=== PATIENT | female | born 1965 | race Caucasian/White ===

== ENCOUNTER → 2020-01-21 16:21 | Outpatient (CLI) | payer BC, SELFPAY ==
[2020-01-23 14:48] LABS: Covid-19 Nasal PCR Sendout Lex NOT DETECTED
== END ==
PROVIDERS: PCP Family Medicine; Visit Provider Nurse Practitioner Family
DX: Z03.818 Encounter for observation for suspected exposure to other biological agents ruled out (principal)
CPT/HCPCS: U0004

== ENCOUNTER 2020-03-16 11:21 | Emergency (ER) | payer BC, SELFPAY ==
[2020-03-16 11:35] VITALS: BP 145/85; PULSE 90; RESP 19; TEMP 37.1; O2SAT 96; BMI 28.3
--- NOTE | 2020-03-16 11:35 | XR_ITS ---
PROCEDURE: XR CHEST 2V CLINICAL HISTORY: COUGH Some shortness of breath COMPARISON: No exams were available for comparison FINDINGS: The cardiomediastinal silhouette and pulmonary vascularity are within normal limits. The lung abdi are well expanded. There are subtle patchy ill-defined opacities in the right infrahilar region and right lower lobe and also right suprahilar region and extending into the anterior segment right upper lobe consistent with early acute airspace disease. The left lung abdi well expanded and clear. There is no pleural fluid. IMPRESSION: Ill-defined pneumonic infiltrates upper lobe and right lower lobe Dictated by: Dr. Martínez Diana MD 03/16/2020 18:50 Dr. Martínez Diana MD in [place] 03/16/2020 18:50
--- NOTE | 2020-03-16 11:42 | HMH.EDUTC ---
[facility] [place]: Cough, Encounter for laboratory testing for COVID-19 virus Disposition: Home, Self-Care Condition on Discharge: Good Instructions: Cough, Benzonatate Additional Instructions: *Monitor Temp, Over the counter Motrin or Tylenol as directed/as needed Tylenol every 4 hours and Motrin every 6 hours (as long as your family doctor has told you that you can take it) for fever or pain. and straight to ER if unable to lower temp less than 101.0 after medication given *Warm salt water gargles may help to soothe the throat *Throat Lozenges *Warm fluids like tea with honey may help to soothe the throat *Sleep elevated *Humidifier/Vaporizer *Flonase 2 sprays in each nostril daily but be aware that it may take 2-3 days before you notice improvement Your throat swab was sent for culture. Those results are typically sent to your primary care. Be sure to follow up in 2-3 days with your family doctor/primary care physician if no improvement so they can review those result and treat if necessary. If you don?t have a primary care doctor, I recommend you get one but in the mean time, you will have to return to a walk in clinic Follow up IMMEDIATELY for new or worsening symptoms or no Noticeable improvement over the next 48-72 hours. 911 for difficulty breathing or swallowing You was tested for today for COVID19 your test result should be back tomorrow or Tuesday, you may call back on Tuesday to see if your test results are back and the result You was given a handout with instructions for Self Quarantine and Self isolation for while you wait on test results and what to do if they are positive Prescriptions: Benzonatate [Tessalon Perle 100mg Cap*] 100 mg PO TID PRN #30 cap PRN Reason: Cough Transmission Status: Received by [facility] #[id number] Referrals: Seble Black [Primary Care Provider] - As needed Forms: Work/School Release Time of Disposition: 12:36 Medical Decision Making - Joseph Inquiry Pt receiving controlled substance: No Joseph was queried for this patient: No Vital Signs: 03/16/20 11:35 03/16/20 12:43 Temperature 98.8 F 98.8 F Temperature Source Oral Oral Pulse Rate 90 Pulse Rate [Radial] 90 Respiratory Rate 19 19 Blood Pressure 145/85 H Blood Pressure [Right Arm] 145/85 H Blood Pressure Mean [Right Arm] 105 Blood Pressure Source Automatic Cuff Blood Pressure Source [Right Arm] Automatic Cuff Blood Pressure Position Sitting Blood Pressure Position [Right Arm] Sitting 02 Sat by Pulse Oximetry 96 Oxygen Delivery Method Room Air Room Air - Lab Data Lab Results 03/16/20 11:42: Strep Scn Rapid Clinic Negative Orders (Tests/Meds): ORDERS Category Date Time Status Covid-19 Nasal PCR Sendout [facility] Stat Lab 03/16/20 11:50 Received Strep Screen Confirmation Stat Micro 03/16/20 11:42 Received - Radiology Data #1 Image(s): Chest Image Reviewed: Yes I reviewed the patient's radiology image w/the ED provider Preliminary Findings: Normal/NAD [facility] [place] - General Stated complaint: cough soa Time Seen by Provider: 03/16/20 11:42 Mode of Arrival: Ambulatory Source of Information: Patient Limitations: No Limitations Description of Symptoms (Recalled from Triage Doc. by RN): was diagnosed with bronchitis on Tuesday and isn't any better HEENT Symptoms (Recalled from RN notes): No Resp Symptoms (Recalled from RN notes): Yes Skin Symptoms (Recalled from RN notes): No MS Symptoms (Recalled from RN notes): No Functional Status (Recalled from RN notes): wnl - History of Present Illness Provider Complaint: Patient states she was seen by her PCP on Tuesday and dx with bronchitis and sinusitis and placed on Doxy, flonase and given inhaler States that she [facility] but has never heard anything State that she is feeling worse States that she is having body aches, cough, headache worsening of sinus pressure so she come in t
[2020-03-16 12:15] LABS: UTC Strep Screen (Rapid) Negative (Negative)
[2020-03-16 12:43] VITALS: BP 145/85; PULSE 90; RESP 19; TEMP 37.1; O2SAT 96
[2020-03-17 16:39] LABS: Covid-19 Nasal PCR Sendout UK Detected
--- NOTE | 2020-03-17 16:42 | PC.NURSE ---
Attempted to call patient regarding positive covid results. No answer. Message left.
--- NOTE | 2020-03-17 17:13 | PC.NURSE ---
Patient returned phone call and was notified of positive COVID results. Educated on strict quarantine.
== END 2020-03-16 12:44 | disposition home or self-care (01) ==
PROVIDERS: Emergency Provider Nurse Practitioner; PCP Family Medicine
DX: U07.1 COVID-19 (principal)
CPT/HCPCS: 71046; 87880; 99202; U0003

== ENCOUNTER 2020-03-24 14:58 | Emergency (ER) | payer BC, SELFPAY ==
[2020-03-24 15:59] VITALS: BP 111/44; PULSE 65; RESP 18; TEMP 37; O2SAT 98; BMI 24.5
--- NOTE | 2020-03-24 16:03 | HMH.EDUTC ---
[facility] [place] Clinical Impression: Encounter for laboratory testing for COVID-19 virus Disposition: Home, Self-Care Condition on Discharge: Good Instructions: Preventing the Spread of Coronavirus Discharge Instructions Additional Instructions: *Monitor Temp, Over the counter Motrin or Tylenol as directed/as needed Tylenol every 4 hours and Motrin every 6 hours (as long as your family doctor has told you that you can take it) for fever or pain. and straight to ER if unable to lower temp less than 101.0 after medication given *Warm fluids like tea with honey may help to soothe the throat *Sleep elevated *Humidifier/Vaporizer Follow up IMMEDIATELY for new or worsening symptoms or no Noticeable improvement over the next 48-72 hours. 911 for difficulty breathing or swallowing You was tested for today for COVID19 your test result should be back later this evening, you may call back later this evening to see if your test results are back and the result You was given a handout with instructions for Self Quarantine and Self isolation for while you wait on test results and what to do if they are positive Referrals: Seble Black [Primary Care Provider] - As needed Forms: Work/School Release Time of Disposition: 16:06 Medical Decision Making - Joseph Inquiry Pt receiving controlled substance: No Joseph was queried for this patient: No Vital Signs: 03/24/20 15:59 Temperature 98.6 F Temperature Source Oral Pulse Rate [Right Brachial] 65 Respiratory Rate 18 Blood Pressure [Right Arm] 111/44 L Blood Pressure Mean [Right Arm] 66 Blood Pressure Source [Right Arm] Automatic Cuff Blood Pressure Position [Right Arm] Sitting 02 Sat by Pulse Oximetry 98 Oxygen Delivery Method Room Air Orders (Tests/Meds): ORDERS Category Date Time Status Covid-19 Nasal PCR ([facility]) Routine Lab 03/24/20 15:41 Ordered [facility] [place] - General Stated complaint: covid test Time Seen by Provider: 03/24/20 16:03 Mode of Arrival: Ambulatory Source of Information: Patient Limitations: No Limitations Description of Symptoms (Recalled from Triage Doc. by RN): PATIENT REQUESTING COVID TEST. SHE WAS POSITIVE APPROX 2 WEEKS AGO AND IS NEEDING 2 NEGATIVE RESULTS TO RETURN TO WORK. DENIES SYMPTOMS AT THIS TIME HEENT Symptoms (Recalled from RN notes): No Resp Symptoms (Recalled from RN notes): No Skin Symptoms (Recalled from RN notes): No MS Symptoms (Recalled from RN notes): No Functional Status (Recalled from RN notes): WNL - History of Present Illness Provider Complaint: Patient states that she was positive for COVID about 2 weeks ago and she is feeling much better States that she came in today because work is requiring her to have 2 negative tests before she can return back to work States that she is not having any symptoms at this time - Related Data Previous Rx's Medication Instructions Recorded Benzonatate [Tessalon Perle 100mg 100 mg PO TID PRN #30 cap 03/16/20 Cap*] Allergies Allergy/AdvReac Type Severity Reaction Status Date / Time erythromycin base Allergy Verified 03/24/20 16:03 - Worker's Comp Is this a Worker's Comp case?: No [facility] History - Hepatitis A Screen Drug use history?: No High risk sexual behaviors?: No History of sexually transmitted infection?: No Currently employed?: No Childcare worker?: No Do you have indoor plumbing?: Yes Do you have electricity?: Yes Attestation statement:: This patient has been screened for Hepatitis A risk factors. I have reviewed the patient's past medical history: Yes - Social History Alcohol Intake: never Occupational Status: other ROS Obtained: Yes All systems reviewed & no additional complaints, Yes Systems reviewed as appropriate & no additional complaints - Constitutional Constitutional: Reports system reviewed and no additional complaints, except as docu, Denies body ache, Denies chills, Denies fever(s), Denies headache(s) - Eyes Eyes: Reports
[2020-03-24 16:08] VITALS: BP 111/44; PULSE 65; RESP 18; TEMP 37; O2SAT 98
--- NOTE | 2020-03-24 21:10 | PC.NURSE ---
Phone call to patient informing her of positive COVID 19 results, patient instructed to follow guide lines given at time of discharge. Informed patient to seek medical attention if symptoms develop.
== END 2020-03-24 16:10 | disposition home or self-care (01) ==
PROVIDERS: Emergency Provider Nurse Practitioner; PCP Family Medicine
DX: U07.1 COVID-19 (principal)
CPT/HCPCS: 99201; U0003

== ENCOUNTER 2020-03-31 09:59 | Emergency (ER) | payer BC, MEDICAID, SELFPAY ==
[2020-03-31 10:45] VITALS: BP 119/66; PULSE 73; RESP 14; TEMP 36.8; O2SAT 97; BMI 28.6
--- NOTE | 2020-03-31 10:57 | HMH.EDUTC ---
[facility] Disposition Clinical Impression: COVID-19 Disposition: Home, Self-Care Condition on Discharge: Good Instructions: Preventing the Spread of Coronavirus Discharge Instructions Additional Instructions: Drink plenty of fluids. Take tylenol for pain or fever. Follow up with your regular doctor. GO TO THE ER FOR ANY WORSENING SYMPTOMS Referrals: Seble Black [Primary Care Provider] - Forms: Work/School Release Time of Disposition: 11:02 Medical Decision Making - Medical Records Medical records reviewed: No: I reviewed the patient's medical records. - Joseph Inquiry Pt receiving controlled substance: No Vital Signs: 03/31/20 10:45 03/31/20 11:03 Temperature 98.2 F 98.2 F Temperature Source Oral Pulse Rate 73 Pulse Rate [Right Brachial] 73 Respiratory Rate 14 14 Blood Pressure 119/66 Blood Pressure [Right Arm] 119/66 Blood Pressure Mean [Right Arm] 83 Blood Pressure Source [Right Arm] Automatic Cuff Blood Pressure Position [Right Arm] Sitting 02 Sat by Pulse Oximetry 97 Oxygen Delivery Method Room Air Orders (Tests/Meds): ORDERS Category Date Time Status Covid-19 Nasal PCR ([facility]) Routine Lab 03/31/20 10:40 Received [facility] HPI - General Stated complaint: covid test for work Time Seen by Provider: 03/31/20 10:57 - History of Present Illness Provider Complaint: She has had covid. She is better now. She needs 2 negative test before she can go back to work. She has had one negative test already. She denies any more symptoms over the past 1 week. - Related Data Allergies Allergy/AdvReac Type Severity Reaction Status Date / Time erythromycin base Allergy Verified 03/24/20 16:03 [facility] History - Hepatitis A Screen Attestation statement:: This patient has been screened for Hepatitis A risk factors. I have reviewed the patient's past medical history: Yes - Social History Alcohol Intake: never Occupational Status: other ROS Obtained: Yes All systems reviewed & no additional complaints - Constitutional Constitutional: Reports system reviewed and no additional complaints, except as docu - Eyes Eyes: Reports system reviewed and no additional complaints, except as docu - ENT Ears, Nose, Mouth, and Throat: Reports system reviewed and no additional complaints, except as docu - Cardiovascular Cardiovascular: Reports system reviewed and no additional complaints, except as docu - Respiratory Respiratory: Yes system reviewed and no additional complaints, except as docu - Gastrointestinal Gastrointestingal: Reports: system reviewed and no additional complaints, except as docu Physical Exam - General General appearance: alert, in no apparent distress - Head Head exam: atraumatic, normocephalic, normal inspection - Eye Eye exam: Present: normal appearance, PERRL, EOMI - ENT ENT exam: Present: normal exam, normal oropharynx, mucous membranes moist, TM's normal bilaterally, normal external ear exam - Neck Neck exam: Present: normal inspection, full ROM, trachea midline. Absent: meningismus, lymphadenopathy - Chest Chest inspection: Present: normal inspection, symmetric chest wall rise. Absent: tenderness - Respiratory Respiratory exam: Present: normal lung sounds bilaterally. Absent: respiratory distress - Cardiovascular Cardiovascular exam: Present: regular rate, normal rhythm. Absent: JVD - Abdominal Exam Abdominal exam: Present: soft, normal bowel sounds. Absent: distention, tenderness, guarding - Extremities Exam Extremities exam: Present: normal inspection, full ROM, normal capillary refill. Absent: calf tenderness - Back Exam Back exam: Present: normal inspection. Absent: tenderness - Neurological Exam Neurological exam: Present: alert, oriented X3 - Psychiatric Psychiatric exam: Present: normal affect, normal mood - Skin Skin exam: Present: warm, dry, intact, normal color - Lymphatic Lymphatic Findings
[2020-03-31 11:03] VITALS: BP 119/66; PULSE 73; RESP 14; TEMP 36.8; O2SAT 97
--- NOTE | 2020-03-31 17:06 | PC.NURSE ---
PATIENT NOTIFIED OF POSITIVE COVID RESULT
--- NOTE | 2020-04-03 18:20 | PC.NURSE ---
PT CALLED AND NOTIFIED OF POSITIVE COVID TEST RESULT AT THIS TIME
== END 2020-03-31 11:07 | disposition home or self-care (01) ==
PROVIDERS: Emergency Provider Nurse Practitioner Family; PCP Family Medicine
DX: U07.1 COVID-19 (principal)
CPT/HCPCS: 99201; U0003

== ENCOUNTER 2020-04-02 11:28 | Emergency (ER) | payer BC, MEDICAID, SELFPAY ==
[2020-04-02 11:33] VITALS: BP 123/70; PULSE 66; RESP 19; TEMP 36.6; O2SAT 99; BMI 28.6
--- NOTE | 2020-04-02 11:45 | HMH.EDUTC ---
[facility] [place] Clinical Impression: Encounter for laboratory testing for COVID-19 virus Disposition: Home, Self-Care Condition on Discharge: Good Instructions: Preventing the Spread of Coronavirus Discharge Instructions Additional Instructions: *Monitor Temp, Over the counter Motrin or Tylenol as directed/as needed Tylenol every 4 hours and Motrin every 6 hours (as long as your family doctor has told you that you can take it) for fever or pain. and straight to ER if unable to lower temp less than 101.0 after medication given *Warm salt water gargles may help to soothe the throat *Throat Lozenges *Warm fluids like tea with honey may help to soothe the throat *Sleep elevated *Humidifier/Vaporizer Follow up IMMEDIATELY for new or worsening symptoms or no Noticeable improvement over the next 48-72 hours. 911 for difficulty breathing or swallowing You was tested for today for COVID19 your test result should be back later this evening, you may call back later this evening to see if your test results are back and the result You was given a handout with instructions for Self Quarantine and Self isolation for while you wait on test results and what to do if they are positive Referrals: Seble Black [Primary Care Provider] - As needed Forms: Work/School Release Time of Disposition: 11:46 Medical Decision Making - Joseph Inquiry Pt receiving controlled substance: No Joseph was queried for this patient: No Vital Signs: 04/02/20 11:33 Temperature 97.9 F Temperature Source Oral Pulse Rate [Radial] 66 Respiratory Rate 19 Blood Pressure [Right Arm] 123/70 Blood Pressure Mean [Right Arm] 87 Blood Pressure Source [Right Arm] Automatic Cuff Blood Pressure Position [Right Arm] Sitting 02 Sat by Pulse Oximetry 99 Oxygen Delivery Method Room Air Orders (Tests/Meds): ORDERS Category Date Time Status Covid-19 Nasal PCR ([facility]) Routine Lab 04/02/20 11:34 Or[place] [facility] [place] - General Stated complaint: covid test Time Seen by Provider: 04/02/20 11:45 Mode of Arrival: Ambulatory Source of Information: Patient Limitations: No Limitations Description of Symptoms (Recalled from Triage Doc. by RN): covid test HEENT Symptoms (Recalled from RN notes): No Resp Symptoms (Recalled from RN notes): No Skin Symptoms (Recalled from RN notes): No MS Symptoms (Recalled from RN notes): No Functional Status (Recalled from RN notes): wnl - History of Present Illness Provider Complaint: Patient states that she was Tested and was positive for COVID several weeks ago States that her work told her she had to have two negative COVID tests to return to work States that [facility] and [facility] was negative then was tested at the [facility] and it showed positive States that she is back today to get another test to see if it shows negative - Related Data Allergies Allergy/AdvReac Type Severity Reaction Status Date / Time erythromycin base Allergy Verified 03/24/20 16:03 - Worker's Comp Is this a Worker's Comp case?: No [facility] History - Hepatitis A Screen Drug use history?: No High risk sexual behaviors?: No History of sexually transmitted infection?: No Currently employed?: No Childcare worker?: No Do you have indoor plumbing?: Yes Do you have electricity?: Yes Attestation statement:: This patient has been screened for Hepatitis A risk factors. I have reviewed the patient's past medical history: Yes - Social History Alcohol Intake: never Occupational Status: other ROS Obtained: Yes All systems reviewed & no additional complaints, Yes Systems reviewed as appropriate & no additional complaints - Constitutional Constitutional: Reports system reviewed and no additional complaints, except as docu, Denies body ache, Denies chills, Denies fever(s) - ENT Ears, Nose, Mouth, and Throat: Reports system reviewed and no additional complaints, except as docu, Denies sinus pain, Denies sinus pressure, Denies sore thr
[2020-04-02 11:54] VITALS: BP 123/70; PULSE 66; RESP 19; TEMP 36.6; O2SAT 99
[2020-04-03 16:53] LABS: Covid-19 Nasal PCR Sendout Lex Positive
== END 2020-04-02 11:54 | disposition home or self-care (01) ==
PROVIDERS: Emergency Provider Nurse Practitioner; PCP Family Medicine
DX: U07.1 COVID-19 (principal)
CPT/HCPCS: 99201; U0004

== ENCOUNTER 2021-04-19 09:29 | Emergency (ER) | payer BC, SELFPAY ==
[2021-04-19 09:46] VITALS: BP 124/47; PULSE 71; RESP 16; TEMP 36.8; O2SAT 98; BMI 26.1
--- NOTE | 2021-04-19 09:56 | HMH.EDUTC ---
[facility] [place] Clinical Impression: Acute bronchitis Qualifiers: Bronchitis organism: unspecified organism Qualified Code(s): J20.9 - Acute bronchitis, unspecified Sinusitis Qualifiers: Sinusitis location: unspecified location Chronicity: acute Recurrence: non-recurrent Qualified Code(s): J01.90 - Acute sinusitis, unspecified Disposition: Home, Self-Care Condition on Discharge: Good Instructions: DI for Sinusitis, DI for Acute Bronchitis Additional Instructions: Drink plenty of fluids. Take tylenol or ibuprofen for pain or fever. Take the medications as directed. Follow up with your regular doctor. GO TO THE ER FOR ANY WORSENING SYMPTOMS Prescriptions: Amoxicillin/Potassium Clav [Augmentin 875-125 Tablet] 1 tab PO Q12H 10 Days #20 tab Transmission Status: Received by [facility] #[id number] Benzonatate [Benzonatate 100mg cap] 100 mg PO TIDP PRN #30 cap PRN Reason: Cough Transmission Status: Received by [facility] #[id number] methylPREDNISolone [Medrol] 4 mg PO DIRECTED 6 Days #21 packet Transmission Status: Received by [facility] #[id number] guaiFENesin [Mucinex 600mg tablet] 1 - 2 tab PO BIDP PRN #30 tab PRN Reason: Congestion Transmission Status: Received by [facility] #[id number] Referrals: Yazmin Houser [Primary Care Provider] - Forms: Work/School Release Time of Disposition: 10:24 Medical Decision Making - Medical Records Medical records reviewed: No: I reviewed the patient's medical records. - Joseph Inquiry Pt receiving controlled substance: No Vital Signs: 04/19/21 09:46 04/19/21 10:22 Temperature 98.2 F 98.2 F Temperature Source Oral Oral Pulse Rate 71 Pulse Rate [Right Brachial] 71 Respiratory Rate 16 16 Blood Pressure 124/47 L Blood Pressure [Right Arm] 124/47 L Blood Pressure Mean [Right Arm] 72 Blood Pressure Source [Right Arm] Automatic Cuff Blood Pressure Position [Right Arm] Sitting 02 Sat by Pulse Oximetry 98 Oxygen Delivery Method Room Air - Lab Data Lab results reviewed: Yes: I reviewed the patient's lab results. Medical Decision Narrative: She refused a covid or viral swab today. [facility] [place] - General Stated complaint: congestion Time Seen by Provider: 04/19/21 09:56 Mode of Arrival: Ambulatory Source of Information: Patient Limitations: No Limitations Description of Symptoms (Recalled from Triage Doc. by RN): cough. fever. stuffy nose HEENT Symptoms (Recalled from RN notes): Yes Resp Symptoms (Recalled from RN notes): Yes Skin Symptoms (Recalled from RN notes): No MS Symptoms (Recalled from RN notes): No Functional Status (Recalled from RN notes): yes - History of Present Illness Provider Complaint: She states that for the past 2 days she has had chilling, sinus congestion and chest congestion. She has been fully vaccinated against covid-19. - Related Data Home Medications Medication Instructions Recorded Confirmed Metoprolol Succinate [Metoprolol 50 mg PO DAILY 04/19/21 04/19/21 Succinate 50mg Tablet*] buPROPion HCL [Wellbutrin SR] 150 mg PO BID 04/19/21 04/19/21 hydrOXYzine HCL [Hydroxyzine HCl] 25 mg PO DAILY 04/19/21 04/19/21 Previous Rx's Medication Instructions Recorded Amoxicillin/Potassium Clav 1 tab PO Q12H 10 Days #20 tab 04/19/21 [Augmentin 875-125 Tablet] Benzonatate [Benzonatate 100mg 100 mg PO TIDP PRN #30 cap 04/19/21 cap] guaiFENesin [Mucinex 600mg tablet] 1 - 2 tab PO BIDP PRN #30 tab 04/19/21 methylPREDNISolone [Medrol] 4 mg PO DIRECTED 6 Days #21 04/19/21 packet Allergies Allergy/AdvReac Type Severity Reaction Status Date / Time erythromycin base Allergy Verified 03/24/20 16:03 - Worker's Comp Is this a Worker's Comp case?: No Is this an H Worker's Comp?: No Is this a Gabriela Worker's Comp?: No [facility] History - Hepatitis A Screen Drug use history?: No High risk sexual behaviors?: No History of sexually transmitted infection?: No
[2021-04-19 10:22] VITALS: BP 124/47; PULSE 71; RESP 16; TEMP 36.8
== END 2021-04-19 10:22 | disposition home or self-care (01) ==
PROVIDERS: Emergency Provider Nurse Practitioner Family; PCP Nurse Practitioner Family
DX: J20.9 Acute bronchitis, unspecified (principal); J01.90 Acute sinusitis, unspecified
CPT/HCPCS: 99202; G0463

== ENCOUNTER → 2021-06-01 13:24 | Outpatient (CLI) | payer BC, SELFPAY | PROVIDERS: Visit Provider Nurse Practitioner | DX: Z20.822 Contact with and (suspected) exposure to COVID-19 (principal) | CPT/HCPCS: C9803; U0003; U0005 ==